=== PATIENT | female | born 1990 | race Caucasian/White ===

== ENCOUNTER → 2023-11-21 10:02 | Outpatient (REF) | payer OTHER, SELFPAY | LOC: HWRAD 10:02 | PROVIDERS: ATTENDING PHYSICIAN Nurse Practitioner Adult Health; FAMILY PHYSICIAN Internal Medicine | DX: N93.9 Abnormal uterine and vaginal bleeding, unspecified (principal) | CPT/HCPCS: 76830; 76856 ==

== ENCOUNTER → 2024-11-19 13:39 | Outpatient (REF) | payer OTHER, SELFPAY | LOC: PNTC 13:39 | PROVIDERS: ATTENDING PHYSICIAN Obstetrics & Gynecology | DX: Z36.0 Encounter for antenatal screening for chromosomal anomalies (principal); Z36.82 Encounter for antenatal screening for nuchal translucency; O09.521 Supervision of elderly multigravida, first trimester; O09.811 Supervision of pregnancy resulting from assisted reproductive technology, first trimester; O34.81 Maternal care for other abnormalities of pelvic organs, first trimester | CPT/HCPCS: 76801; 76813 ==